=== PATIENT | male | born 1985 | race Caucasian/White ===

== ENCOUNTER 2019-04-07 23:41 | Emergency (ER) | payer BC ==
--- NOTE | 2019-04-08 00:35 | ER ---
Nurse's Notes [facility] Name: Nic Galvan Age: 33 yrs Sex: Male : 1985 Arrival Date: 04/07/2019 Time: 23:48 Bed 13 Private MD: Diagnosis: Sprain of ankle Presentation: 04/07 23:54 Presenting complaint: Patient states: I hurt my right ankle and foot about 24 hours la1 ago, I stepped in a hole. Transition of care: patient was not received from another setting of care. Onset of symptoms was April 07, 2019. Risk Assessment: Do you want to hurt yourself or someone else? Patient reports no desire to harm self or others. Initial Sepsis Screen: Does the patient meet any 2 criteria? No. Patient's initial sepsis screen is negative. Does the patient have a suspected source of infection? No. Patient's initial sepsis screen is negative. Care prior to arrival: None. 23:54 Method Of Arrival: Ambulatory la1 23:54 Acuity: TREV 4 la1 Historical: - Allergies: 23:56 No Known Allergies; la1 - PMHx: 23:56 Hypertension; la1 - Immunization history:: Adult Immunizations up to date. - Social history:: Smoking status: Patient/guardian denies using tobacco. - Ebola Screening: : Patient denies travel to an Ebola-affected area in the 21 days before illness onset. Screenin:57 Abuse screen: Denies threats or abuse. Nutritional screening: No deficits noted. la1 Tuberculosis screening: No symptoms or risk factors identified. Fall Risk None identified. Assessment: 23:56 General: Appears uncomfortable, Behavior is calm, cooperative. Pain: Complains of pain la1 in lateral side of right foot, right lateral malleolus and right medial malleolus. Neuro: Level of Consciousness is awake, alert, obeys commands. Cardiovascular: Capillary refill < 3 seconds Patient's skin is warm and dry. Musculoskeletal: Circulation, motion, and sensation intact. Capillary refill < 3 seconds, Range of motion: limited in right ankle. Vital Signs: 23:56 BP 150 / 90; Pulse 84; Resp 16; Temp 97.4; Pulse Ox 98% ; Weight 136.08 kg; Height 5 la1 ft. 10 in. (177.80 cm); 23:56 Body Mass Index 43.05 (136.08 kg, 177.80 cm) la1 ED Course: 23:48 Patient arrived in ED. ag3 23:49 William Stover MD is Attending Physician. tw4 23:53 Piter López RN is Primary Nurse. la1 23:54 Triage completed. la1 23:56 Arm band placed on left wrist. la1 23:57 Call light in reach. Side rails up X 1. la1 04/08 01:02 No provider procedures requiring assistance completed. Patient did not have IV access la1 during this emergency room visit. 01:41 Ankle Right 3 View XRAY In Process Unspecified. EDMS 01:42 Foot Right 3 View XRAY In Process Unspecified. EDMS Administered Medications: 00:46 Drug: [place] 5 mg-325 mg 1 tabs Route: PO; la1 00:47 Follow up: Response: Medication administered at discharge. la1 00:46 Drug: TORadol 60 mg Route: IM; Site: right gluteus; la1 01:02 Follow up: Response: No adverse reaction; Pain is decreased la1 Outcome: 00:33 Discharge ordered by . tw4 01:02 Patient left the ED. la1 Signatures: Dispatcher [employer] EDMS Piter López RN RN la1 William Stover MD MD tw4 Janae Smith 3
--- NOTE | 2019-04-08 00:36 | EDPHYS ---
Physician Documentation [facility] Name: Nic Galvan Age: 33 yrs Sex: Male : 1985 Arrival Date: 04/07/2019 Time: 23:48 Bed 13 Private MD: ED Physician William Stover HPI: 04/08 00:34 This 33 yrs old Male presents to ER via Ambulatory with complaints of Ankle tw4 Injury. 00:34 The patient presents with pain, that is acute. The complaints affect the right ankle. tw4 Onset: The symptoms/episode began/occurred yesterday. Context: The problem was sustained outdoors, resulted from a mis-step by the patient, The mechanism of injury involved inversion of the affected ankle. The patient can partially bear weight on the affected extremity. Associated signs and symptoms: The patient has no apparent associated signs or symptoms. Modifying factors: The symptoms are alleviated by elevation of extremity, the symptoms are aggravated by weight bearing, movement, wearing shoes. Severity of symptoms: At their worst the symptoms were moderate, in the emergency department the symptoms are unchanged. The patient has not experienced similar symptoms in the past. Historical: - Allergies: 04/07 23:56 No Known Allergies; la1 - PMHx: 23:56 Hypertension; la1 - Immunization history:: Adult Immunizations up to date. - Social history:: Smoking status: Patient/guardian denies using tobacco. - Ebola Screening: : Patient denies travel to an Ebola-affected area in the 21 days before illness onset. ROS: 04/08 00:34 Constitutional: Negative for fever, chills, and weight loss, Cardiovascular: Negative tw4 for chest pain, palpitations, and edema, Respiratory: Negative for shortness of breath, cough, wheezing, and pleuritic chest pain, Abdomen/GI: Negative for abdominal pain, nausea, vomiting, diarrhea, and constipation, Back: Negative for injury and pain, Skin: Negative for injury, rash, and discoloration, Neuro: Negative for headache, weakness, numbness, tingling, and seizure. MS/extremity: Positive for injury or acute deformity, decreased range of motion, swelling, tenderness, Negative for abrasion, contusion. Exam: 00:34 Constitutional: This is a well developed, well nourished patient who is awake, alert, tw4 and in no acute distress. Head/Face: Normocephalic, atraumatic. Chest/axilla: Normal chest wall appearance and motion. Nontender with no deformity. No lesions are appreciated. Cardiovascular: Regular rate and rhythm with a normal S1 and S2. No gallops, murmurs, or rubs. Normal PMI, no JVD. No pulse deficits. Respiratory: Lungs have equal breath sounds bilaterally, clear to auscultation and percussion. No rales, rhonchi or wheezes noted. No increased work of breathing, no retractions or nasal flaring. Abdomen/GI: Soft, non-tender, with normal bowel sounds. No distension or tympany. No guarding or rebound. No evidence of tenderness throughout. 00:34 Musculoskeletal/extremity: Extremities: noted in the right ankle, medial aspect of right foot, anterior aspect of right ankle and dorsum of right foot: pain, swelling, tenderness, There is no evidence of abrasion, bite, deformity, ecchymosis, erythema, laceration. Vital Signs: 04/07 23:56 BP 150 / 90; Pulse 84; Resp 16; Temp 97.4; Pulse Ox 98% ; Weight 136.08 kg; Height 5 la1 ft. 10 in. (177.80 cm); 23:56 Body Mass Index 43.05 (136.08 kg, 177.80 cm) la1 MDM: 23:52 Patient medically screened. tw4 04/08 00:36 Differential diagnosis: fracture, sprain. Data reviewed: vital signs, nurses notes. tw4 Test interpretation: by ED physician or midlevel provider: plain radiologic studies. Counseling: I had a detailed discussion with the patient and/or guardian regarding: the historical points, exam findings, and any diagnostic results supporting the discharge/admit diagnosis, radiology results. Medication response: Toradol partially relieved the patient's pain. Response to treatment: and as a result, I will discharge patient, administer pain medication, ibuprofen. 04/08 00:12 Order name: Ankle Right 3 View XRAY la1 04/08 00:12 Order name: Foot Right 3 View XRAY la1 Administered Medications: 00:46 Drug: [place] 5 mg-325 mg 1 tabs Route: PO; la1 00:47 Follow up: Response: Medication administered at discharge. la1 00:46 Drug: TORadol 60 mg Route: IM; Site: right gluteus; la1 01:02 Follow up: Response: No adverse reaction; Pain is decreased la1 Disposition: 04/08/19 00:33 Discharged to Home. Impression: Sprain of ankle. - Condition is Stable. - Discharge Instructions: Ankle Sprain, Ankle Sprain, [id number]. - Prescriptions for Ibuprofen 800 mg Oral Tablet - take 1 tablet by ORAL route every 8 hours As needed take with food; 30 tablet. - Medication Reconciliation Form, Thank You Letter, Antibiotic Education, Prescription Opioid Use form. - Follow up: Private Physician; When: Upon discharge from the Emergency Department; Reason: If symptoms return, Recheck today's complaints, Continuance of care. - Problem is new. - Symptoms have improved. Signatures: Dispatcher [employer] EDMS Piter López RN RN la1 William Stover MD MD tw4 Corrections: (The following items were deleted from the chart) 01:02 00:33 04/08/2019 00:33 Discharged to Home. Impression: Sprain of ankle. Condition is la1 Stable. Forms are Medication Reconciliation Form, Thank You Letter, Antibiotic Education, Prescription Opioid Use. Follow up: Private Physician; When: Upon discharge from the Emergency Department; Reason: If symptoms return, Recheck today's complaints, Continuance of care. Problem is new. Symptoms have improved. tw4
[2019-04-08] MEDS ORDERED: HYDROCODONE/APAP 5/325 MG TAB ONE (00:59)
[2019-04-08] MEDS ORDERED: KETOROLAC 30 MG/ML INJ ONE (00:59)
--- NOTE | 2019-04-08 08:41 | RAD REPORT ---
EXAM DESCRIPTION: RAD - Foot Right 3 View - 04/08/2019 1:40 am CLINICAL HISTORY: Right foot pain status post injury FINDINGS: No fracture or dislocation is seen
--- NOTE | 2019-04-08 08:42 | RAD REPORT ---
EXAM DESCRIPTION: RAD - Ankle Right 3 View - 04/08/2019 1:40 am CLINICAL HISTORY: Right ankle pain FINDINGS: Soft tissue swelling is present. Deformity of the medial malleolus may be related to an old fracture. Bony densities lie adjacent to lateral malleolus and medial talus. Borders are sclerotic and a probab ly are chronic. If patient continues have symptoms to suggest an acute fracture or ligamentous injury then MRI could be obtained
== END 2019-04-08 01:02 | disposition home or self-care (01) ==
LOC: ER 23:41
DX: S93.401A Sprain of unspecified ligament of right ankle, initial encounter (principal); I10 Essential (primary) hypertension
CPT/HCPCS: 96372; 99283

== ENCOUNTER 2019-05-20 08:08 | Emergency (ER) | payer BC ==
--- NOTE | 2019-05-20 08:46 | ER ---
Nurse's Notes [facility] Name: Nic Galvan Age: 33 yrs Sex: Male : 1985 Arrival Date: 05/20/2019 Time: 08:11 Bed 16 Private MD: Diagnosis: Allergic contact dermatitis due to metals;Allergic contact dermatitis Presentation: 05/20 08:22 Presenting complaint: Patient states: LOWER ABDOMINAL RASH x1 YEAR. Transition of care: bp patient was not received from another setting of care. Onset of symptoms is unknown. Risk Assessment: Do you want to hurt yourself or someone else? Patient reports no desire to harm self or others. Initial Sepsis Screen: Does the patient meet any 2 criteria? No. Patient's initial sepsis screen is negative. Does the patient have a suspected source of infection? No. Patient's initial sepsis screen is negative. Care prior to arrival: None. 08:22 Method Of Arrival: Ambulatory bp 08:22 Acuity: TREV 5 bp Triage Assessment: 08:23 General: Appears in no apparent distress. comfortable, obese, Behavior is calm, bp cooperative, appropriate for age. Pain: Denies pain. EENT: No deficits noted. Neuro: No deficits noted. Cardiovascular: No deficits noted. Respiratory: No deficits noted. GI: No signs and/or symptoms were reported involving the gastrointestinal system. : No signs and/or symptoms were reported regarding the genitourinary system. Derm: Rash noted that is itchy. Musculoskeletal: No deficits noted. Historical: - Allergies: 08:23 No Known Allergies; bp - Home Meds: 08:23 Lisinopril Oral [Active]; bp - PMHx: 08:23 Hypertension; bp - Immunization history:: Adult Immunizations up to date. - Social history:: Smoking status: Patient/guardian denies using tobacco. - Ebola Screening: : No symptoms or risks identified at this time. - Family history:: not pertinent. Screenin:27 Abuse screen: Denies threats or abuse. Denies injuries from another. Nutritional bp screening: No deficits noted. Tuberculosis screening: No symptoms or risk factors identified. Fall Risk None identified. Assessment: 08:27 General: SEE TRIAGE NOTE. bp 09:03 Reassessment: PT D/C HOME AMBULATORY, DX WITH ALLERGIC CONTACT DERMATITIS. bp Vital Signs: 08:23 BP 135 / 86; Pulse 74; Resp 17; Temp 98; Pulse Ox 97% ; Weight 133.81 kg; Height 5 ft. bp 10 in. (177.80 cm); 09:03 BP 116 / 70; Pulse 65; Resp 17; Temp 98; Pulse Ox 96% ; bp 08:23 Body Mass Index 42.33 (133.81 kg, 177.80 cm) bp ED Course: 08:11 Patient arrived in ED. as 08:15 Ramez Wilson, RN is Primary Nurse. bp 08:16 Fredo Baker MD is Attending Physician. tyron 08:23 Triage completed. bp 08:26 Arm band placed on. bp 08:27 Patient has correct armband on for positive identification. Bed in low position. Call bp light in reach. Side rails up X2. 08:38 Solo Guajardo MD is Referral Physician. tyron 09:04 No provider procedures requiring assistance completed. Patient did not have IV access bp during this emergency room visit. Administered Medications: No medications were administered Outcome: 08:45 Discharge ordered by . tyron 09:04 Discharged to home ambulatory. bp 09:04 Condition: stable 09:04 Discharge instructions given to patient, Instructed on discharge instructions, follow up and referral plans. medication usage, Demonstrated understanding of instructions, follow-up care, medications, Prescriptions given X 2. 09:04 Patient left the ED. bp Signatures: Fredo Baker MD MD cha Martinez, Amelia as Ramez Wilson, RN RN bp
--- NOTE | 2019-05-20 08:46 | EDPHYS ---
Physician Documentation [facility] Name: Nic Galvan Age: 33 yrs Sex: Male : 1985 Arrival Date: 05/20/2019 Time: 08:11 Bed 16 Private MD: ED Physician Fredo Baker HPI: 05/20 08:32 This 33 yrs old Male presents to ER via Ambulatory with complaints of Rash. [facility] 08:32 The patient's rash thought to be caused by Dermatitis. The rash is located on the [facility] suprapubic area. The rash can be described as erythematous, plaque-like. Onset: The symptoms/episode began/occurred 1 year(s) ago. Associated signs and symptoms: Pertinent positives: burning sensation. Severity of symptoms: At their worst the symptoms were mild moderate in the emergency department the symptoms are unchanged. The patient has experienced similar episodes in the past, chronically. Historical: - Allergies: 08:23 No Known Allergies; bp - Home Meds: 08:23 Lisinopril Oral [Active]; bp - PMHx: 08:23 Hypertension; bp - Immunization history:: Adult Immunizations up to date. - Social history:: Smoking status: Patient/guardian denies using tobacco. - Ebola Screening: : No symptoms or risks identified at this time. - Family history:: not pertinent. ROS: 08:32 Constitutional: Negative for fever, chills, and weight loss, Eyes: Negative for injury, tyron pain, redness, and discharge, ENT: Negative for injury, pain, and discharge, Neck: Negative for injury, pain, and swelling, Cardiovascular: Negative for chest pain, palpitations, and edema, Respiratory: Negative for shortness of breath, cough, wheezing, and pleuritic chest pain, Abdomen/GI: Negative for abdominal pain, nausea, vomiting, diarrhea, and constipation, Back: Negative for injury and pain, : Negative for injury, bleeding, discharge, and swelling, MS/Extremity: Negative for injury and deformity, Neuro: Negative for headache, weakness, numbness, tingling, and seizure, Psych: Negative for depression, anxiety, suicide ideation, homicidal ideation, and hallucinations, Allergy/Immunology: Negative for hives, rash, and allergies, Endocrine: Negative for neck swelling, polydipsia, polyuria, polyphagia, and marked weight changes, Hematologic/Lymphatic: Negative for swollen nodes, abnormal bleeding, and unusual bruising. 08:32 Skin: Positive for rash. Exam: 08:32 Constitutional: This is a well developed, well nourished patient who is awake, alert, tyron and in no acute distress. Head/Face: Normocephalic, atraumatic. Eyes: Pupils equal round and reactive to light, extra-ocular motions intact. Lids and lashes normal. Conjunctiva and sclera are non-icteric and not injected. Cornea within normal limits. Periorbital areas with no swelling, redness, or edema. ENT: Nares patent. No nasal discharge, no septal abnormalities noted. Tympanic membranes are normal and external auditory canals are clear. Oropharynx with no redness, swelling, or masses, exudates, or evidence of obstruction, uvula midline. Mucous membranes moist. Neck: Trachea midline, no thyromegaly or masses palpated, and no cervical lymphadenopathy. Supple, full range of motion without nuchal rigidity, or vertebral point tenderness. No Meningismus. Chest/axilla: Normal chest wall appearance and motion. Nontender with no deformity. No lesions are appreciated. Cardiovascular: Regular rate and rhythm with a normal S1 and S2. No gallops, murmurs, or rubs. Normal PMI, no JVD. No pulse deficits. Respiratory: Lungs have equal breath sounds bilaterally, clear to auscultation and percussion. No rales, rhonchi or wheezes noted. No increased work of breathing, no retractions or nasal flaring. Abdomen/GI: Soft, non-tender, with normal bowel sounds. No distension or tympany. No guarding or rebound. No evidence of tenderness throughout. Back: No spinal tenderness. No costovertebral tenderness. Full range of motion. Male : Normal genitalia with no discharge or lesions. MS/ Extremity: Pulses equal, no cyanosis. Neurovascular intact. Full, normal range of motion. Neuro: Awake and alert, GCS 15, oriented to person, place, time, and situation. Cranial nerves II-XII grossly intact. Motor strength 5/5 in all extremities. Sensory grossly intact. Cerebellar exam normal. Normal gait. Psych: Awake, alert, with orientation to person, place and time. Behavior, mood, and affect are within normal limits. 08:32 Skin: injury, is not appreciated, rash can be described as plaque-like, raised, on the suprapubic area. Vital Signs: 08:23 BP 135 / 86; Pulse 74; Resp 17; Temp 98; Pulse Ox 97% ; Weight 133.81 kg; Height 5 ft. bp 10 in. (177.80 cm); 09:03 BP 116 / 70; Pulse 65; Resp 17; Temp 98; Pulse Ox 96% ; bp 08:23 Body Mass Index 42.33 (133.81 kg, 177.80 cm) bp MDM: 08:16 Patient medically screened. [facility] 08:38 Data reviewed: vital signs, nurses notes. [facility] Administered Medications: No medications were administered Disposition: 05/20/19 08:45 Discharged to Home. Impression: Allergic contact dermatitis due to metals, Allergic contact dermatitis. - Condition is Stable. - Discharge Instructions: Contact Dermatitis, Rash, Rash, [id number], Contact Dermatitis, [id number]. - Prescriptions for Nystatin- Triamcinolone 100,000-0.1 unit/g-% Topical Cream - apply 1 application by TOPICAL route 2 times per day; 45 gram. Medrol (Lenin) 4 mg Oral Tablets, Dose Pack - take 1 tablet by ORAL route as directed - follow package instructions; 1 packet. - Medication Reconciliation Form, Thank You Letter, Antibiotic Education, Prescription Opioid Use form. - Follow up: Private Physician; When: 2 - 3 days; Reason: Recheck today's complaints, Continuance of care, Re-evaluation by your physician. Follow up: Solo Guajardo MD; When: 2 - 3 days; Reason: Recheck today's complaints, Continuance of care, Re-evaluation by your physician. - Problem is new. - Symptoms have improved. Signatures: Fredo Baker MD MD cha Peltier, Brian, JASON RN bp Corrections: (The following items were deleted from the chart) 09:04 08:45 05/20/2019 08:45 Discharged to Home. Impression: Allergic contact dermatitis due bp to metals; Allergic contact dermatitis. Condition is Stable. Forms are Medication Reconciliation Form, Thank You Letter, Antibiotic Education, Prescription Opioid Use. Follow up: Private Physician; When: 2 - 3 days; Reason: Recheck today's complaints, Continuance of care, Re-evaluation by your physician. Follow up: Solo Guajardo; When: 2 - 3 days; Reason: Recheck today's complaints, Continuance of care, Re-evaluation by your physician. Problem is new. Symptoms have improved. tyron
== END 2019-05-20 09:04 | disposition home or self-care (01) ==
LOC: ER 08:08
DX: L23.0 Allergic contact dermatitis due to metals (principal); I10 Essential (primary) hypertension
CPT/HCPCS: 99282

== ENCOUNTER 2019-07-31 04:12 | Emergency (ER) | payer BC ==
--- OUTSIDE RECORDS SUMMARY | 2019-07-31 04:14 | XMS REPORT ---
:1985 Author Organization [employer] Care Team Providers Name Role Phone Michael Perdomo Provider Role Unavailable Allergies No Known Allergies Problems No Known Problems Medications No Known Medications Results No Known Results Summary Purpose [employer] Submission
--- NOTE | 2019-07-31 05:11 | EDPHYS ---
Physician Documentation [facility] Name: Nic Galvan Age: 33 yrs Sex: Male : 1985 Arrival Date: 07/31/2019 Time: 04:13 Bed 14 Private MD: ED Physician Fredo Baker HPI: 07/31 05:07 This 33 yrs old Male presents to ER via Ambulatory with complaints of Cold tyron Symptoms, Cough. 05:07 The patient or guardian reports airway noise, cough. Onset: The symptoms/episode tyron began/occurred 8 day(s) ago. Severity of symptoms: At their worst the symptoms were mild, moderate, in the emergency department the symptoms are unchanged. Modifying factors: The symptoms are alleviated by nothing, the symptoms are aggravated by nothing. The patient has not experienced similar symptoms in the past. Historical: - Allergies: 04:29 No Known Allergies; fc - Home Meds: 04:29 lisinopril 20 mg oral tab 1 tab once daily [Active]; fc - PMHx: 04:29 Hypertension; fc - PSHx: 04:29 Appendectomy; fc - Immunization history:: Last tetanus immunization: up to date Flu vaccine is not up to date. - Social history:: Smoking status: Patient/guardian denies using tobacco, Patient uses alcohol, but reports only rare drinking. Patient/guardian denies using street drugs. - Ebola Screening: : Patient negative for fever greater than or equal to 101.5 degrees Fahrenheit, and additional compatible Ebola Virus Disease symptoms Patient denies exposure to infectious person Patient denies travel to an Ebola-affected area in the 21 days before illness onset. - Family history:: not pertinent. ROS: 05:07 Constitutional: Negative for fever, chills, and weight loss, Eyes: Negative for injury, tyron pain, redness, and discharge, ENT: Negative for injury, pain, and discharge, Neck: Negative for injury, pain, and swelling, Cardiovascular: Negative for chest pain, palpitations, and edema, Abdomen/GI: Negative for abdominal pain, nausea, vomiting, diarrhea, and constipation, Back: Negative for injury and pain, : Negative for injury, bleeding, discharge, and swelling, MS/Extremity: Negative for injury and deformity, Skin: Negative for injury, rash, and discoloration, Neuro: Negative for headache, weakness, numbness, tingling, and seizure, Psych: Negative for depression, anxiety, suicide ideation, homicidal ideation, and hallucinations, Allergy/Immunology: Negative for hives, rash, and allergies, Endocrine: Negative for neck swelling, polydipsia, polyuria, polyphagia, and marked weight changes, Hematologic/Lymphatic: Negative for swollen nodes, abnormal bleeding, and unusual bruising. 05:07 Respiratory: Positive for cough, wheezing, expiratory. Exam: 05:07 Constitutional: This is a well developed, well nourished patient who is awake, alert, tyron and in no acute distress. Head/Face: Normocephalic, atraumatic. Eyes: Pupils equal round and reactive to light, extra-ocular motions intact. Lids and lashes normal. Conjunctiva and sclera are non-icteric and not injected. Cornea within normal limits. Periorbital areas with no swelling, redness, or edema. ENT: Nares patent. No nasal discharge, no septal abnormalities noted. Tympanic membranes are normal and external auditory canals are clear. Oropharynx with no redness, swelling, or masses, exudates, or evidence of obstruction, uvula midline. Mucous membranes moist. Neck: Trachea midline, no thyromegaly or masses palpated, and no cervical lymphadenopathy. Supple, full range of motion without nuchal rigidity, or vertebral point tenderness. No Meningismus. Chest/axilla: Normal chest wall appearance and motion. Nontender with no deformity. No lesions are appreciated. Cardiovascular: Regular rate and rhythm with a normal S1 and S2. No gallops, murmurs, or rubs. Normal PMI, no JVD. No pulse deficits. Abdomen/GI: Soft, non-tender, with normal bowel sounds. No distension or tympany. No guarding or rebound. No evidence of tenderness throughout. Back: No spinal tenderness. No costovertebral tenderness. Full range of motion. Male : Normal genitalia with no discharge or lesions. Skin: Warm, dry with normal turgor. Normal color with no rashes, no lesions, and no evidence of cellulitis. MS/ Extremity: Pulses equal, no cyanosis. Neurovascular intact. Full, normal range of motion. Neuro: Awake and alert, GCS 15, oriented to person, place, time, and situation. Cranial nerves II-XII grossly intact. Motor strength 5/5 in all extremities. Sensory grossly intact. Cerebellar exam normal. Normal gait. Psych: Awake, alert, with orientation to person, place and time. Behavior, mood, and affect are within normal limits. 05:07 Respiratory: mild respiratory distress is noted, Respirations: normal, Breath sounds: rhonchi, that are mild, are scattered, Respiratory rate: 18 Vital Signs: 04:15 BP 141 / 110; Pulse 95; Resp 18; Temp 98.2(O); Pulse Ox 99% on R/A; Weight 136.08 kg fc (R); Height 5 ft. 10 in. (177.80 cm) (R); Pain 4/10; 05:15 BP 113 / 96; Pulse 90; Resp 16; Pulse Ox 100% on R/A; jb4 04:15 Body Mass Index 43.05 (136.08 kg, 177.80 cm) MDM: 04:34 Patient medically screened. [facility] 05:08 Data reviewed: vital signs, nurses notes, radiologic studies, plain films. [facility] 07/31 04:46 Order name: Chest Pa And Lat (2 Views) XRAY jb4 Administered Medications: 05:19 Drug: AtroVENT Aerosol 0.5 mg Route: Inhalation; 4 05:40 Follow up: Response: No adverse reaction; Marked relief of symptoms [facility] 05:19 Drug: predniSONE 40 mg Route: PO; jb4 06:15 Follow up: Response: No adverse reaction [facility] 05:20 Drug: Zithromax 500 mg Route: PO; jb4 06:16 Follow up: Response: No adverse reaction [facility] 05:20 Drug: Xopenex 1.25 mg Route: Inhalation; 4 05:40 Follow up: Response: No adverse reaction; Marked relief of symptoms 4 Disposition: 07/31/19 05:10 Discharged to Home. Impression: Cough, Bronchitis, not specified as acute or chronic, Essential (primary) hypertension, Acute upper respiratory infection, unspecified. - Condition is Stable. - Discharge Instructions: Acute Bronchitis, Adult, Hypertension, Upper Respiratory Infection, Adult, Upper Respiratory Infection, Adult, [id number], Hypertension, [id number], Cough, Adult, [id number], Viral Respiratory Infection, [id number], Cough, Adult, Managing Your Hypertension. - Prescriptions for Medrol (Lenin) 4 mg Oral Tablets, Dose Pack - take 1 tablet by ORAL route as directed - follow package instructions; 1 packet. Albuterol Sulfate 90 mcg/actuation - inhale 1-2 puff by INHALATION route every 4-6 hours; 1 Inhaler. Zithromax 500 mg Oral Tablet - take 1 tablet by ORAL route once daily for 5 days; 5 tablet. Cheratussin AC 10- 100 mg/5 mL Oral liquid - take 10 milliliter by ORAL route every 4 hours; 160 milliliter. - Medication Reconciliation Form, Thank You Letter, Antibiotic Education, Prescription Opioid Use form. - Follow up: Private Physician; When: 2 - 3 days; Reason: Recheck today's complaints, Continuance of care, Re-evaluation by your physician. - Problem is new. - Symptoms have improved. Signatures: Dispatcher [employer] EDMN Fredo Baker MD MD cha Chretien, Felicia, RN RN Homer Malik RN RN jb4 Corrections: (The following items were deleted from the chart) 06:17 05:10 07/31/2019 05:10 Discharged to Home. Impression: Cough; Bronchitis, not specified jb4 as acute or chronic; Essential (primary) hypertension; Acute upper respiratory infection, unspecified. Condition is Stable. Forms are Medication Reconciliation Form, Thank You Letter, Antibiotic Education, Prescription Opioid Use. Follow up: Private Physician; When: 2 - 3 days; Reason: Recheck today's complaints, Continuance of care, Re-evaluation by your physician. Problem is new. Symptoms have improved. tyron
--- NOTE | 2019-07-31 05:11 | ER ---
Nurse's Notes [facility] Name: Nic Galvan Age: 33 yrs Sex: Male : 1985 Arrival Date: 07/31/2019 Time: 04:13 Bed 14 Private MD: Diagnosis: Cough;Bronchitis, not specified as acute or chronic;Essential (primary) hypertension;Acute upper respiratory infection, unspecified Presentation: 07/31 04:15 Presenting complaint: Patient states: that he has had a cough with congestion (green fc sputum) for the past 10 days. Denies any ear pain or a sore throat. Transition of care: patient was not received from another setting of care. Onset of symptoms was July 20, 2019. Risk Assessment: Do you want to hurt yourself or someone else? Patient reports no desire to harm self or others. Initial Sepsis Screen: Does the patient meet any 2 criteria? HR > 90 bpm. Yes Does the patient have a suspected source of infection? No. Patient's initial sepsis screen is negative. Care prior to arrival: None. 04:15 Method Of Arrival: Ambulatory 04:15 Acuity: TREV 3 fc Historical: - Allergies: 04:29 No Known Allergies; fc - Home Meds: 04:29 lisinopril 20 mg oral tab 1 tab once daily [Active]; fc - PMHx: 04:29 Hypertension; fc - PSHx: 04:29 Appendectomy; fc - Immunization history:: Last tetanus immunization: up to date Flu vaccine is not up to date. - Social history:: Smoking status: Patient/guardian denies using tobacco, Patient uses alcohol, but reports only rare drinking. Patient/guardian denies using street drugs. - Ebola Screening: : Patient negative for fever greater than or equal to 101.5 degrees Fahrenheit, and additional compatible Ebola Virus Disease symptoms Patient denies exposure to infectious person Patient denies travel to an Ebola-affected area in the 21 days before illness onset. - Family history:: not pertinent. Screenin:15 Abuse screen: Denies threats or abuse. Nutritional screening: No deficits noted. fc Tuberculosis screening: No symptoms or risk factors identified. Fall Risk None identified. Assessment: 04:35 General: Appears in no apparent distress. comfortable, Behavior is calm, cooperative, jb4 appropriate for age. Pain: Complains of pain in [place] from coughin Pain does not radiate. Pain currently is 4 out of 10 on a pain scale. Neuro: Level of Consciousness is awake, alert, obeys commands, Oriented to person, place, time, situation. Cardiovascular: Heart tones S1 S2 present Patient's skin is warm and dry. Respiratory: Airway is patent Respiratory effort is even, unlabored, Respiratory pattern is regular, symmetrical, Breath sounds are clear bilaterally. GI: No deficits noted. No signs and/or symptoms were reported involving the gastrointestinal system. : No deficits noted. No signs and/or symptoms were reported regarding the genitourinary system. EENT: No deficits noted. No signs and/or symptoms were reported regarding the EENT system. Derm: Skin is intact, Skin is pink, warm \T\ dry. Musculoskeletal: Circulation, motion, and sensation intact. Range of motion: intact in all extremities. 05:20 Reassessment: Patient appears in no apparent distress at this time. Patient and/or jb4 family updated on plan of care and expected duration. Pain level reassessed. Patient is alert, oriented x 3, equal unlabored respirations, skin warm/dry/pink. D/c pending x-ray results. 06:14 Reassessment: Patient appears in no apparent distress at this time. Patient and/or jb4 family updated on plan of care and expected duration. Pain level reassessed. Patient is alert, oriented x 3, equal unlabored respirations, skin warm/dry/pink. PT verbalized understanding of d/c and follow up instructions. Ambulated out of ED with steady gait. Patient states feeling better. Vital Signs: 04:15 BP 141 / 110; Pulse 95; Resp 18; Temp 98.2(O); Pulse Ox 99% on R/A; Weight 136.08 kg fc (R); Height 5 ft. 10 in. (177.80 cm) (R); Pain 4/10; 05:15 BP 113 / 96; Pulse 90; Resp 16; Pulse Ox 100% on R/A; jb4 04:15 Body Mass Index 43.05 (136.08 kg, 177.80 cm) ED Course: 04:13 Patient arrived in ED. ds1 04:15 Arm band placed on Patient placed in an exam room, on a stretcher. 04:15 Patient has correct armband on for positive identification. Bed in low position. Call light in reach. Pulse ox on. NIBP on. 04:15 No provider procedures requiring assistance completed. 04:27 Triage completed. 04:34 Homer Malik, RN is Primary Nurse. jb4 04:34 Fredo Baker MD is Attending Physician. [facility] 06:14 Patient did not have IV access during this emergency room visit. jb4 06:53 Chest Pa And Lat (2 Views) XRAY In Process Unspecified. EDMS Administered Medications: 05:19 Drug: AtroVENT Aerosol 0.5 mg Route: Inhalation; jb4 05:40 Follow up: Response: No adverse reaction; Marked relief of symptoms jb4 05:19 Drug: predniSONE 40 mg Route: PO; jb4 06:15 Follow up: Response: No adverse reaction jb4 05:20 Drug: Zithromax 500 mg Route: PO; jb4 06:16 Follow up: Response: No adverse reaction jb4 05:20 Drug: Xopenex 1.25 mg Route: Inhalation; jb4 05:40 Follow up: Response: No adverse reaction; Marked relief of symptoms jb4 Outcome: 05:10 Discharge ordered by . [facility] 06:14 Discharged to home ambulatory. jb4 06:14 Condition: stable 06:14 Discharge instructions given to patient, Instructed on discharge instructions, follow up and referral plans. medication usage, Demonstrated understanding of instructions, follow-up care, medications, Prescriptions given X 4. 06:17 Patient left the ED. jb4 Signatures: Dispatcher [employer] EDMS Fredo Baker MD MD cha Chretien, Felicia, RN RN Renetta Marks ds1 Homer Malik, RN RN jb4 Corrections: (The following items were deleted from the chart) 05:57 05:20 Reassessment: Patient appears in no apparent distress at this time. Patient jb4 and/or family updated on plan of care and expected duration. Pain level reassessed. Patient is alert, oriented x 3, equal unlabored respirations, skin warm/dry/pink. jb4
[2019-07-31] MEDS ORDERED: AZITHROMYCIN 250 MG TAB ONE (05:14)
[2019-07-31] MEDS ORDERED: IPRATROPIUM BROM 0.5MG/2.5ML ONE (05:14)
[2019-07-31] MEDS ORDERED: predniSONE 20 MG TAB ONE (05:15)
[2019-07-31] MEDS ORDERED: LEVALBUTEROL 1.25 MG/3 ML NEB ONE (05:15)
[2019-07-31 06:47] VITALS: TEMP 98.2
[2019-07-31 06:48] VITALS: BP 113/96; O2SAT 100
--- NOTE | 2019-07-31 08:46 | RAD REPORT ---
EXAM DESCRIPTION: RAD - Chest Pa And Lat (2 Views) - 07/31/2019 6:52 am CLINICAL HISTORY: COUGH COMPARISON: January 2019 TECHNIQUE: PA and lateral views of the chest were obtained. FINDINGS: The lungs are clear. Lung markings are similar to comparison. Heart size is normal and ce ntral vasculature is within normal limits. No pleural effusion or pneumothorax seen. No acute bony finding noted. No aortic abnormality. IMPRESSION: No acute cardiopulmonary process.
== END 2019-07-31 06:17 | disposition home or self-care (01) ==
LOC: ER 04:12
DX: J40 Bronchitis, not specified as acute or chronic (principal); J06.9 Acute upper respiratory infection, unspecified; I10 Essential (primary) hypertension
CPT/HCPCS: 71046; 99284; J7512

== ENCOUNTER 2019-08-08 23:30 | Emergency (ER) | payer BC ==
[2019-08-08] MEDS ORDERED: TETRACAINE HCL 0.5% 4ML OPTH ONE ×2 (23:52→23:54)
[2019-08-08] MEDS ORDERED: FLUORESCEIN SODIUM 1 MG/WRAP ONE ×2 (23:52→23:54)
--- NOTE | 2019-08-09 00:15 | EDPHYS ---
Physician Documentation [facility] Name: Nic Galvan Age: 33 yrs Sex: Male : 1985 Arrival Date: 08/08/2019 Time: 23:32 Bed 5 Private MD: ED Physician Fredo Baker HPI: 08/09 00:17 This 33 yrs old Male presents to ER via Ambulatory with complaints of Eye kb Pain. 00:17 The patient is experiencing foreign body sensation, pain, to the right eye, caused by kb debris. Onset: The symptoms/episode began/occurred today. Duration: the symptoms are intermittent. Aggravated by nothing. Alleviated by nothing. Associated signs and symptoms: Pertinent positives: None. Patient does not utilize any form of vision correction. Severity of symptoms: At their worst the symptoms were mild moderate in the emergency department the symptoms are unchanged. The patient has experienced similar episodes in the past, a few times. The patient has not recently seen a physician. 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 Historical: - Allergies: 08/08 23:47 No Known Allergies; fc - Home Meds: 23:47 lisinopril 20 mg Oral tab 1 tab once daily [Active]; fc - PMHx: 23:47 Hypertension; fc - PSHx: 23:47 Appendectomy; fc - Immunization history:: Last tetanus immunization: up to date Flu vaccine is not up to date. - Social history:: Smoking status: Patient/guardian denies using tobacco, Patient uses alcohol, occasionally. Patient/guardian denies using street drugs. - Ebola Screening: : Patient negative for fever greater than or equal to 101.5 degrees Fahrenheit, and additional compatible Ebola Virus Disease symptoms Patient denies exposure to infectious person Patient denies travel to an Ebola-affected area in the 21 days before illness onset. ROS: 08/09 00:20 Constitutional: Negative for fever, chills, and weight loss, ENT: Negative for injury, kb pain, and discharge, Neck: Negative for injury, pain, and swelling, Cardiovascular: Negative for chest pain, palpitations, and edema, Respiratory: Negative for shortness of breath, cough, wheezing, and pleuritic chest pain, Abdomen/GI: Negative for abdominal pain, nausea, vomiting, diarrhea, and constipation, Back: Negative for injury and pain, MS/Extremity: Negative for injury and deformity, Skin: Negative for injury, rash, and discoloration, Neuro: Negative for headache, weakness, numbness, tingling, and seizure. Eyes: Positive for foreign body sensation, pain, of the iris of right eye. Exam: 00:22 Visual Acuity: I have reviewed the nursing documentation. Visual acuity is within kb normal limits. 00:22 Constitutional: This is a well developed, well nourished patient who is awake, alert, and in no acute distress. Head/Face: Normocephalic, atraumatic. ENT: Nares patent. No nasal discharge, no septal abnormalities noted. Tympanic membranes are normal and external auditory canals are clear. Oropharynx with no redness, swelling, or masses, exudates, or evidence of obstruction, uvula midline. Mucous membranes moist. Neck: Trachea midline, no thyromegaly or masses palpated, and no cervical lymphadenopathy. Supple, full range of motion without nuchal rigidity, or vertebral point tenderness. No Meningismus. Chest/axilla: Normal chest wall appearance and motion. Nontender with no deformity. No lesions are appreciated. Cardiovascular: Regular rate and rhythm with a normal S1 and S2. No gallops, murmurs, or rubs. Normal PMI, no JVD. No pulse deficits. Respiratory: Lungs have equal breath sounds bilaterally, clear to auscultation and percussion. No rales, rhonchi or wheezes noted. No increased work of breathing, no retractions or nasal flaring. Abdomen/GI: Soft, non-tender, with normal bowel sounds. No distension or tympany. No guarding or rebound. No evidence of tenderness throughout. Back: No spinal tenderness. No costovertebral tenderness. Full range of motion. Skin: Warm, dry with normal turgor. Normal color with no rashes, no lesions, and no evidence of cellulitis. MS/ Extremity: Pulses equal, no cyanosis. Neurovascular intact. Full, normal range of motion. Neuro: Awake and alert, GCS 15, oriented to person, place, time, and situation. Cranial nerves II-XII grossly intact. Motor strength 5/5 in all extremities. Sensory grossly intact. Cerebellar exam normal. Normal gait. 00:22 Eyes: Corneas: abrasion, that is small, on the right, foreign body, is not appreciated, a fluorescein strip employed to appreciate the findings. Vital Signs: 08/08 23:47 BP 145 / 81; Pulse 92; Resp 20; Temp 98.1(O); Pulse Ox 96% on R/A; Weight 136.08 kg fc (R); Height 5 ft. 10 in. (177.80 cm) (R); Pain 5/10; 08/09 00:49 BP 120 / 72; Pulse 83; Resp 14 S; Pulse Ox 96% on R/A; bb 08/08 23:47 Body Mass Index 43.05 (136.08 kg, 177.80 cm) Visual Acuity: 08/08 23:57 Left Eye Visual acuity 20/30, Pupil size 3 mm, Normal, React To Light, Reactive To jd3 Accomodation; Right Eye Visual acuity 20/25, Pupil size 3 mm, ; Both Eyes Visual acuity 20/20; Without Lenses; MDM: 23:49 Patient medically screened. kb 08/09 00:05 Data reviewed: vital signs, nurses notes. Data interpreted: Pulse oximetry: on room air kb is 96 %. Interpretation: normal. Counseling: I had a detailed discussion with the patient and/or guardian regarding: the historical points, exam findings, and any diagnostic results supporting the discharge/admit diagnosis, the need for outpatient follow up, an opthalmologist, to return to the emergency department if symptoms worsen or persist or if there are any questions or concerns that arise at home. 08/08 23:48 Order name: Visual Acuity; Complete Time: 23:57 kb 08/08 23:48 Order name: Eye Tray; Complete Time: 23:57 kb 08/08 23:48 Order name: Fluoresene Opth strip; Complete Time: 23:57 kb Administered Medications: 08/08 23:57 Drug: Tetracaine Drops 0.5 % 1 drops Route: Ophthalmic; Site: right eye; jd3 08/09 00:33 Not Given (not available): Polysporin Ointment 1 application Ophthalmic once fc 00:33 Drug: Tobramycin Ointment (0.3 %) 0.5 inches Route: Ophthalmic; Site: right eye; fc 00:48 Follow up: Response: No adverse reaction bb Disposition: 12:14 Co-signature as Attending Physician, Fredo Baker MD I agree with the assessment and tyron plan of care. Disposition: 08/09/19 00:14 Discharged to Home. Impression: Injury of conjunctiva and corneal abrasion without foreign body, right eye. - Condition is Stable. - Discharge Instructions: Corneal Abrasion, [id number]. - Medication Reconciliation Form, Thank You Letter, Antibiotic Education, Prescription Opioid Use form. - Follow up: Emergency Department; When: As needed; Reason: Worsening of condition. Follow up: Private Physician; When: 2 - 3 days; Reason: Recheck today's complaints, Continuance of care, Re-evaluation by your physician. Signatures: Cata Galvan, MOTOR OPERATOR-C MOTOR OPERATOR-Fredo Walter MD MD cha Chretien, Felicia, RN RN Salma Lebron RN RN William Blunt RN RN jd3 Corrections: (The following items were deleted from the chart) 00:49 00:14 08/09/2019 00:14 Discharged to Home. Impression: Injury of conjunctiva and bb corneal abrasion without foreign body, right eye. Condition is Stable. Forms are Medication Reconciliation Form, Thank You Letter, Antibiotic Education, Prescription Opioid Use. Follow up: Emergency Department; When: As needed; Reason: Worsening of condition. Follow up: Private Physician; When: 2 - 3 days; Reason: Recheck today's complaints, Continuance of care, Re-evaluation by your physician. kb
--- NOTE | 2019-08-09 00:15 | ER ---
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 Transition of care: patient was not received from another setting of care. Mechanism of Injury: Grinding. The patient denies any loss of vision. Onset of symptoms was August 08, 2019 at 14:00. Risk Assessment: Do you want to hurt yourself or someone else? Patient reports no desire to harm self or others. Care prior to arrival: washed eye out for approx 15 minutes and then he tried OTC eye drops. 23:45 Method Of Arrival: Ambulatory 23:45 Acuity: TREV 4 08/09 00:47 Initial Sepsis Screen: Does the patient meet any 2 criteria? No. Patient's initial bb sepsis screen is negative. Does the patient have a suspected source of infection? No. Patient's initial sepsis screen is negative. Historical: - Allergies: 08/08 23:47 No Known Allergies; fc - Home Meds: 23:47 lisinopril 20 mg Oral tab 1 tab once daily [Active]; fc - PMHx: 23:47 Hypertension; fc - PSHx: 23:47 Appendectomy; fc - Immunization history:: Last tetanus immunization: up to date Flu vaccine is not up to date. - Social history:: Smoking status: Patient/guardian denies using tobacco, Patient uses alcohol, occasionally. Patient/guardian denies using street drugs. - Ebola Screening: : Patient negative for fever greater than or equal to 101.5 degrees Fahrenheit, and additional compatible Ebola Virus Disease symptoms Patient denies exposure to infectious person Patient denies travel to an Ebola-affected area in the 21 days before illness onset. Screenin:48 Abuse screen: Denies threats or abuse. Nutritional screening: No deficits noted. fc Tuberculosis screening: No symptoms or risk factors identified. Fall Risk None identified. Assessment: 08/09 00:45 General: Appears uncomfortable, Behavior is calm, cooperative. Pain: Complains of pain bb in right eye. Neuro: Level of Consciousness is awake, alert, obeys commands, Oriented to person, place, time, situation. Cardiovascular: No deficits noted. Respiratory: Respiratory effort is even, unlabored, Respiratory pattern is regular. GI: No deficits noted. No signs and/or symptoms were reported involving the gastrointestinal system. EENT: Eyes are tearing on right eye Sclera/Cornea are reddened in right eye. Derm: Skin is pink, warm \T\ dry. Musculoskeletal: Circulation, motion, and sensation intact. 00:47 Reassessment: pt verbalized understanding of and agrees to plan of care discharge bb instructions given pt ambulated with steady gait to exit accompanied by spouse. Vital Signs: 08/08 23:47 BP 145 / 81; Pulse 92; Resp 20; Temp 98.1(O); Pulse Ox 96% on R/A; Weight 136.08 kg fc (R); Height 5 ft. 10 in. (177.80 cm) (R); Pain 5/10; 08/09 00:49 BP 120 / 72; Pulse 83; Resp 14 S; Pulse Ox 96% on R/A; bb 08/08 23:47 Body Mass Index 43.05 (136.08 kg, 177.80 cm) Visual Acuity: 08/08 23:57 Left Eye Visual acuity 20/30, Pupil size 3 mm, Normal, React To Light, Reactive To jd3 Accomodation; Right Eye Visual acuity 20/25, Pupil size 3 mm, ; Both Eyes Visual acuity 20/20; Without Lenses; ED Course: 23:32 Patient arrived in ED. cl3 23:46 Triage completed. fc 23:47 Arm band placed on Patient placed in an exam room, on a stretcher. fc 23:48 [facility] kb 23:48 Fredo Baker MD is Attending Physician. kb 23:48 Patient has correct armband on for positive identification. Bed in low position. Call light in reach. 08/09 00:47 No provider procedures requiring assistance completed. Patient did not have IV access bb during this emergency room visit. Administered Medications: 08/08 23:57 Drug: Tetracaine Drops 0.5 % 1 drops Route: Ophthalmic; Site: right eye; jd3 08/09 00:33 Not Given (not available): Polysporin Ointment 1 application Ophthalmic once 00:33 Drug: Tobramycin Ointment (0.3 %) 0.5 inches Route: Ophthalmic; Site: right eye; 00:48 Follow up: Response: No adverse reaction bb Outcome: 00:14 Discharge ordered by . laurel 00:47 Discharged to home with family. bb 00:47 Condition: stable 00:47 Discharge instructions given to patient, Instructed on discharge instructions, follow up and referral plans. Demonstrated understanding of instructions, follow-up care. 00:49 Patient left the ED. bb Signatures: Cata Galvan, [facility] [employer] TECHNICIAN-Janet Nye RN RN fc Salma Umanzor RN RN bb William Tyson RN RN jd3 Lewis, Charde cl3 Corrections: (The following items were deleted from the chart) 08/08 23:49 23:47 Pulse 92bpm; Resp 20bpm; Pulse Ox 96% RA; Temp 98.1F Oral; 136.08 kg Reported; fc Height 5 ft. 10 in. Reported; BMI: 43.0; Pain 5/10; fc
[2019-08-09] MEDS ORDERED: TOBRAMYCIN SULF 0.3% OPTH OINT ONE (00:26)
[2019-08-09 01:21] VITALS: BP 120/72; O2SAT 96
[2019-08-09 01:22] VITALS: TEMP 98.1
== END 2019-08-09 00:49 | disposition home or self-care (01) ==
LOC: ER 23:30
DX: S05.01XA Injury of conjunctiva and corneal abrasion without foreign body, right eye, initial encounter (principal); I10 Essential (primary) hypertension
CPT/HCPCS: 99283